=== PATIENT | female | born 1980 | race Caucasian/White ===

== ENCOUNTER 2020-12-27 10:40 | Emergency (ER) | payer OTHER, SELFPAY ==
--- NOTE | ~2020-12-27 | XR_ITS ---
EXAMINATION: XR foot RT min 3V DATE: 12/27/2020 10:58 INDICATION: Right foot pain. TECHNIQUE: 4 views of right foot were obtained. COMPARISON: None. FINDINGS: Bone alignment is normal. There is a nondisplaced transverse fracture of neck of fifth meta tarsal. 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 IMPRESSION: 1. Nondisplaced transverse fracture of neck of fifth metatarsal. Reviewed, dictated and finalized at location A. PROCESSING SPECIALIST
[2020-12-27 10:45] VITALS: BP 138/81; PULSE 91; RESP 16; TEMP 36.5; O2SAT 100
--- NOTE | 2020-12-27 10:45 | ED.LOWEXIN ---
HPI - Extremity Injury (Lower) General Chief Complaint: Extremity Injury, Lower Stated Complaint: injured r ankle/foot Source: patient Limitations: no limitations History of Present Illness HPI Narrative: The obese patient, previously mostly healthy, presents with right ankle pain. Patient states she twisted her ankle a day prior to arrival at ~0800am, going down stairs at the last steps. No bleeding, deformity; symptoms are mild, worse with activity and better with elevation. Related Data Home Medications Medication Instructions Recorded Confirmed metformin 500 mg tablet 1,000 mg PO BID tablet 03/28/20 12/27/20 Allergies Allergy/AdvReac Type Severity Reaction Status Date / Time mold extracts Allergy Mild Sneezing Verified 12/27/20 10:46 Cat Dander Allergy Unknown Wheezing Uncoded 12/27/20 10:46 Review of Systems Review of Systems: Narrative: General/Constitutional: No weight loss,fever Eyes: N0: Redness,discharge Ears/Nose/Throat: No: Epistaxis,ear discharge Respiratory: Denies: Hemoptysis Gastrointestinal: No Vomiting, Bleeding-rectal Skin: No Lumps, eruption Neurologic: No Focal Weakness,Sz Hematologic: Denies: Petechiae/Purpura Psychiatric: No: Suicida ideationl All Other Systems: Reviewed and Negative PMFSH Past Medical History Medical History (Updated 12/27/20 @ 11:06 by Hamlet Bolaños MD) Allergies Asthma Essential hypertension History of gestational diabetes Hyperglycemia Family History Family History (Updated 03/28/20 @ 07:51 by Nicky Murrell AMERICANIZATION TEACHER) Father Patient's father is Myocardial infarction Sibling Asthma Mother Patient's mother is Tongue cancer Social History Social History (Updated 03/28/20 @ 08:07 by Nicky Murrell CMA) Smoking status: Never smoker Alcohol intake: current Comments At time of signature, agree with nursing past medical, surgical, social and family history. There is no relevant family history pertinent to the presenting complaint Exam Narrative: Exam Narrative: General Appearance: Well nourished/ obese, Conjunctiva clear Mouth/Throat: Normal appearing, Normal lips, Supple Respiratory: Airway patent, No respiratory distress MS-foot: Normal strength -mostly intact, limited flexion/extension by pain, Tenderness 5th MT, with mild decreased ROM, Scant swelling -5th metatarsal, Other -no anterior drawer, no collateral laxity, no Achilles tenderness Skin: Warm, Dry, Normal color Neurological: A&O x3, Normal affect Course Course Emergency Course: Films visualized, interpreted by radiologist, agree, ABnormal see report Vital Signs Vital signs: Vital Signs Temperature 97.7 F 12/27/20 10:45 Pulse Rate 91 12/27/20 10:45 Respiratory Rate 16 12/27/20 10:45 Blood Pressure 138/81 12/27/20 10:45 Pulse Oximetry 100 12/27/20 10:45 Temperature 97.7 F 12/27/20 10:45 Pulse Rate 91 12/27/20 10:45 Respiratory Rate 16 12/27/20 10:45 Blood Pressure 138/81 12/27/20 10:45 Pulse Oximetry 100 12/27/20 10:45 Discharge Plan Discharge Clinical Impression: Closed nondisplaced fracture of fifth right metatarsal bone Qualifiers: Encounter type: initial encounter Qualified Code(s): S92.354A - Nondisplaced fracture of fifth metatarsal bone, right foot, initial encounter for closed fracture Patient Disposition: Home, Self-Care Condition: Improved Instructions: Foot Fracture in Adults (ED) Additional Instructions: See podiatry and follow-up You may wear flat shoe or lolita tape to reduce pain Prescriptions: New acetaminophen-codeine 300-30 mg tablet 1 tablet PO HS PRN (Reason: pain) Qty: 10 RF: 0 tramadol 50 mg tablet 50 mg PO Q6H PRN (Reason: pain) Qty: 15 RF: 1 No Action metformin 500 mg tablet 1,000 mg PO BID RF: 0 ipratropium-albuterol 0.5 mg-3 mg(2.5 mg base)/3 mL solution for nebulization 3 ml INHALATION Q4H PRN (Reason: shortne
== END 2020-12-27 11:20 | disposition home or self-care (01) ==
PROVIDERS: Emergency Provider Emergency Medicine; PCP Internal Medicine
DX: S92.344A Nondisplaced fracture of fourth metatarsal bone, right foot, initial encounter for closed fracture (principal); X50.9XXA Other and unspecified overexertion or strenuous movements or postures, initial encounter; J45.909 Unspecified asthma, uncomplicated; I10 Essential (primary) hypertension
CPT/HCPCS: 73630; 99214; G0463

== ENCOUNTER → 2021-01-24 10:30 | Outpatient (CLI) | payer OTHER, SELFPAY ==
--- NOTE | ~2021-01-24 | MM_ITS ---
EXAMINATION: MM screening kapil BI w delbert HISTORY: Screening mammogram TECHNIQUE: Craniocaudal and mediolateral oblique 3-D tomosynthesis images were obtained and synthetic 2-D images were generated. CAD analysis was submitted and interpreted. COMPARISON: None, baseline BREAST PARENCHYMAL COMPOSITION: The breasts are almost entirely fatty. FINDINGS: Fat-containing masses in the upper outer quadrant of the right breast are consistent with i ntramammary lymph nodes. There is no evidence of suspicious mass, calcification, or architectural dis tortion to suggest malignancy in either breast. IMPRESSION: 1. No mammographic evidence of malignancy. 2. Recommend routine screening mammography in one year. BI-RADS Category 2: Benign finding(s). Reviewed, dictated and finalized at location A.
== END ==
PROVIDERS: Visit Provider Obstetrics & Gynecology Gynecology
DX: Z12.31 Encounter for screening mammogram for malignant neoplasm of breast (principal)
CPT/HCPCS: 77063; 77067

== ENCOUNTER → 2023-07-22 08:01 | Outpatient (CLI) | payer OTHER, SELFPAY ==
--- NOTE | ~2023-07-22 | US_ITS ---
US soft tissue head and neck 07/22/2023 08:17 Indication: Left neck lump Procedure: High-resolution left neck Comparison: No prior studies for comparison. Findings: In the area of palpable concern of the left neck there is no discrete mass identified. Ther e is a normal-appearing 1.3 cm lymph node in the carotid space. Impression: 1: No discrete mass identified in the area of palpable concern in the left neck. Reviewed, dictated and finalized at location B. Impression: 1: No discrete mass identified in the area of palpable concern in the left neck .
== END ==
PROVIDERS: PCP Internal Medicine; Visit Provider Nurse Practitioner Family
DX: R22.1 Localized swelling, mass and lump, neck (principal)
CPT/HCPCS: 76536

== ENCOUNTER 2024-05-26 10:07 | Outpatient (CLI) | payer OTHER, SELFPAY ==
--- NOTE | ~2024-05-26 | MM_ITS ---
EXAMINATION: MM screening kapil BI w delbert HISTORY: Screening TECHNIQUE: Craniocaudal and mediolateral oblique 3-D tomosynthesis images were obtained and synthetic 2-D images were generated. CAD analysis was submitted and interpreted. COMPARISON: Comparison to multiple prior studies sequentially, with oldest reviewed study dated 10/2020. BREAST PARENCHYMAL COMPOSITION: Not dense: There are scattered areas of fibroglandular density. FINDINGS: There is no evidence of suspicious mass, calcification, or architectural distortion to sugg est malignancy in either breast. There has been no suspicious interval change. IMPRESSION: 1. No mammographic evidence of malignancy. 2. Recommend routine screening mammography in one year. BI-RADS Category 1: Negative Reviewed, dictated and finalized at location B.
== END 2024-05-26 10:08 ==
LOC: MICIMG 10:08
PROVIDERS: PCP Clinical Nurse Specialist; Visit Provider Nurse Practitioner
DX: Z12.31 Encounter for screening mammogram for malignant neoplasm of breast (principal)
CPT/HCPCS: 77063; 77067

== ENCOUNTER 2025-09-11 00:54 | Day surgery (SDC) | payer OTHER, SELFPAY ==
[2025-08-29 10:05] VITALS: BMI 29.8
[2025-09-11 07:19] VITALS: BP 123/95; PULSE 71; RESP 16; TEMP 36.4; O2SAT 100
[2025-09-11 07:23] LABS: BEDSIDEPREGUCG Negative (Negative)
[2025-09-11] MEDS: LACTATED RINGERS 1,000 ML 150 ML IV CONT (07:29)
--- NOTE | 2025-09-11 07:53 | WPDANESEPPF ---
Anes - Initial Pre Proc Eval Procedure: Operation Date: 09/11/25 08:30 Proposed Procedures p Screening Colonoscopy - Jimbo Graf DO Date/Time: 09/11/25 07:53 Surgeon: Jimbo Graf DO Pre Op Diagnosis: Neoplasm screening Patient Data Age: 44 Gender: F Height: 1.68 m Weight: 83.9 kg Last Vital Signs Temp 36.4 C 09/11/25 07:19 Pulse 71 09/11/25 07:19 Resp 16 09/11/25 07:19 BP 123/95 H 09/11/25 07:19 Pulse Ox 100 09/11/25 07:19 O2 Del Method Room Air 09/11/25 07:19 Allergies Allergy/AdvReac Type Severity Reaction Status Date / Time mold extracts Allergy Mild Sneezing Verified 09/11/25 07:17 Cat Dander Allergy Unknown Wheezing Uncoded 05/02/25 10:45 Home Medications ?Medication ?Instructions ?Recorded ?Confirmed ?Type ipratropium 0.5 mg-albuterol 3 mg 3 ml inhalation Q4H PRN shortness 01/11/20 08/29/25 Rx (2.5 mg base)/3 mL nebulization of breath or wheezing #90 mL soln albuterol sulfate 90 mcg/actuation See Rx Instructions .Route 02/24/24 09/11/25 Rx aerosol inhaler .COMPLEX #8.5 grams ergocalciferol (vitamin D2) 1,250 1,250 mcg PO 2XW #26 caps 05/02/25 09/11/25 Rx mcg (50,000 unit) capsule lisinopril 10 mg tablet See Rx Instructions .Route 07/31/25 09/11/25 Rx .COMPLEX #90 tabs montelukast 10 mg tablet See Rx Instructions .Route 07/31/25 09/11/25 Rx .COMPLEX #90 tabs folic acid 20 mg capsule 20 mg PO DAILY 08/29/25 09/11/25 History semaglutide (weight loss) 0.25 0.25 mg subcut Q7D 08/29/25 08/29/25 History mg/0.5 mL subcutaneous pen injector Laboratory Tests 09/11/25 07:19 POC Urine HCG, Qual Negative (Negative) Patient hx anesthesia problems: none Family hx anesthesia problems: none Results Review: All pre-operative results and documents have been reviewed as part of the pre-operative evaluation. [facility] Past Medical History Medical History (Updated 05/03/25 @ 21:17 by Teresa Villalobos APRN, JULIO-C) Obesity (BMI 30-39.9) Neck mass Hyperglycemia Allergies Asthma Essential hypertension History of gestational diabetes Family History Family History Father Patient's father is Myocardial infarction Sibling Asthma Mother Patient's mother is Tongue cancer Social History Social History Smoking status: Never smoker Alcohol intake: current Alcohol use details: occassionally Substance use: never Substance use type: does not use Living arrangements: with family Spiritual care concerns: No Anes - Eval Final PreProcedure Day of Procedure 09/11/25 07:53 Patient weight: overweight Heart: regular rate and rhythm Lungs: clear to auscultation Airway: Mallampati scale class II Neurological: alert and oriented Last oral intake: >/= 8 hours ASA classification: II Emergent: no Anesthetic plan: proceed Anesthesia type and monitoring: general GIVS and standard monitoring Results Review: All pre-operative results and documents have been reviewed as part of the pre-operative evaluation. Informed Consent: The patient's anesthetic plan and its attendant risks and benefits were discussed with the patient/family/POA. Questions were solicited and answers provided to the satisfaction of the patient/family/POA.
--- NOTE | 2025-09-11 08:14 | PM.IMHP ---
H&P: HPI History of Present Illness Date/Time: 09/11/25 08:14 Chief Complaint: Screening for colorectal cancer Narrative: this is a 44-year-old woman who presents for colonoscopy. She has never had a colonoscopy before. She denies any hematochezia or melena. She denies family history of colon cancer. Review of Systems Review of Systems: All systems reviewed & are unremarkable except as noted in HPI and below Constitutional: Constitutional: Denies chills, Denies fever(s), Denies headache(s) and Denies weight loss Eyes: Eyes: Denies change in vision ENT: Denies dizziness, Denies headache(s), Denies neck mass and Denies throat swelling Cardiovascular: Cardiovascular: Denies chest pain, Denies lightheadedness and Denies dyspnea Respiratory: Respiratory: Denies cough, Denies dyspnea and Denies wheezing Gastrointestinal: Gastrointestinal: Denies abdominal pain, Denies change in bowel habits, Denies nausea and Denies vomiting Genitourinary: Genitourinary: Denies hematuria and Denies dysuria Musculoskeletal: Musculoskeletal: Reports as per HPI Integumentary/Breasts: Skin/Breast: Reports as per HPI Neurologic: Denies dizziness and Denies headache(s) Allergic/Immunologic: Allergic/Immunologic: Denies throat swelling and Denies wheezing [facility] Past Medical History Medical History (Updated 05/03/25 @ 21:17 by Teresa Villalobos APRN, WEAVE DEFECT CHARTING CLERK-C) Obesity (BMI 30-39.9) Neck mass Hyperglycemia Allergies Asthma Essential hypertension History of gestational diabetes Family History Family History Father Patient's father is Myocardial infarction Sibling Asthma Mother Patient's mother is Tongue cancer Social History Social History Smoking status: Never smoker Alcohol intake: current Alcohol use details: occassionally Substance use: never Substance use type: does not use Living arrangements: with family Spiritual care concerns: No Meds Home Medications and Allergies Home Medications ?Medication ?Instructions ?Recorded ?Confirmed ?Type ipratropium 0.5 mg-albuterol 3 mg 3 ml inhalation Q4H PRN shortness 01/11/20 08/29/25 Rx (2.5 mg base)/3 mL nebulization of breath or wheezing #90 mL soln albuterol sulfate 90 mcg/actuation See Rx Instructions .Route 02/24/24 09/11/25 Rx aerosol inhaler .COMPLEX #8.5 grams ergocalciferol (vitamin D2) 1,250 1,250 mcg PO 2XW #26 caps 05/02/25 09/11/25 Rx mcg (50,000 unit) capsule lisinopril 10 mg tablet See Rx Instructions .Route 07/31/25 09/11/25 Rx .COMPLEX #90 tabs montelukast 10 mg tablet See Rx Instructions .Route 07/31/25 09/11/25 Rx .COMPLEX #90 tabs folic acid 20 mg capsule 20 mg PO DAILY 08/29/25 09/11/25 History semaglutide (weight loss) 0.25 0.25 mg subcut Q7D 08/29/25 08/29/25 History mg/0.5 mL subcutaneous pen injector Allergies Allergy/AdvReac Type Severity Reaction Status Date / Time mold extracts Allergy Mild Sneezing Verified 09/11/25 07:17 Cat Dander Allergy Unknown Wheezing Uncoded 05/02/25 10:45 Vital Signs Vital Signs - 24 hr 09/11/25 07:19 Temperature 97.6 F Pulse Rate 71 Respiratory Rate 16 Blood Pressure 123/95 H Pulse Oximetry 100 Oxygen Delivery Room Air Exam Const: General: no acute distress and alert Orientation/consciousness: patient oriented x3 HENMT: Head: normocephalic and atraumatic Ears: hearing grossly normal bilaterally Face/Nose/Sinus: Normal nares present Mouth: Yes Normal oral and palatal mucosa present Eyes: Periorbital: periorbital findings normal Sclera: sclerae normal EOM: EOMs intact bilaterally Neck: Neck: normal visual inspection, no lymphadenopathy and trachea midline Chest: Chest palpation & inspection: normal inspection of the chest Resp: Effort & Inspection: normal respiratory effort Auscultation: clear to auscultation bilaterally Cardio: Jugular venous distension: no JVD Rate: regular rate Rhythm: regular rhythm Heart sounds: S1 normal heart sound present and S2 normal heart sound present Peripheral pulses: Peripheral pulses 2+ throughout GI: Inspection: normal to inspection GI Palp: Yes Soft to palpation, No Tenderness to palpation present (GI), No Guarding due to palpation present (GI) and No Rebound tenderness present Percussion: Yes normal to percussion Auscultation: normal bowel sounds : General: Yes no CVA tenderness Back/Spine/Pelvis: Back: no CVA tenderness Neuro: General: patient oriented x3, no focal motor deficits and CN's II-XI intact bilaterally Cognition (Neuro): normal cognition Speech: normal speech Motor exam (neuro): 5/5 motor strength present throughout Extrem: General: capillary refill normal and no clubbing, cyanosis or edema Assessment and Plan Assessment and plan (1) Screening for colon cancer: Code(s): Z12.11 - Encounter for screening for malignant neoplasm of colon Status: Acute Assessment and Plan: I have recommended colonoscopy. I have discussed the procedure, risks, benefits, and alternatives. Questions were answered. Patient is agreeable to proceed.
--- NOTE | 2025-09-11 08:41 | S_PTH ---
PATIENT: Kavita Quintana LOC: [facility] U#:[id number] AGE/SX: 44/F ROOM: RE09/11/[address]: Jimbo Graf DO : 1980 BED: DIS: 09/11/2025 SPEC #: [id number] RECD: 09/11/25 09:09 STATUS: EYAD REQ #: [id number] ORALIA: 09/11/25 08:[address]: Jimbo Graf DEPT: [facility] Surgical RECD BY: Shari Colvin ENTERED: 09/11/25 09:09 SP TYPE: Surgical OTHR DR: Bam Boo DO Tissues: A - Colon Polypectomy B - Colon Polypectomy Procedures: Hematoxylin and Eosin Stain Gross and Microscopic Level 4
[2025-09-11 08:43] VITALS: BP 118/68; PULSE 82; RESP 20; O2SAT 100
[2025-09-11 08:53] VITALS: BP 115/75; PULSE 82; RESP 20; O2SAT 100
[2025-09-11 09:03] VITALS: BP 124/65; PULSE 80; RESP 18; O2SAT 100
== END 2025-09-11 09:09 | disposition home or self-care (01) ==
PROVIDERS: Anesthesiology; PCP Internal Medicine; Visit Provider Surgery
PROC: 0DJD8ZZ Inspection of Lower Intestinal Tract, Via Natural or Artificial Opening Endoscopic (ICD-10-PCS; CPT 45378; principal; 2025-09-11 08:30)
DX: Z12.11 Encounter for screening for malignant neoplasm of colon (principal); D12.2 Benign neoplasm of ascending colon; K63.5 Polyp of colon
CPT/HCPCS: 45380; 88305; J2704; J7120